=== PATIENT | female | born 1940 | race Caucasian/White ===

== ENCOUNTER 2016-10-12 10:05 | Emergency (ER) | payer OTHER ==
[~2016-10-12] VITALS: Ht 167.6 cm; Wt 85.0 kg
[~2016-10-12 10:05] MED LIST: ADVIL,NUPRIN,M200 MG PO; AMLODIPINE BESYL5 MG PO; ASPIRIN81 M2 PO; Aspirin E.C. PO; CALCIUM ASCORB500 MG PO; CALCIUM600 M1 PO; CARVEDILOL25 MG PO; Calcium Carbonate,Ca PO; Coreg PO; DOCUSATE SODIU100 MG PO; FISH OIL 1,0001 EAC7 PO; FUROSEMIDE80 MG PO; Fish Oil PO; HUMALOG MI100 UNIT/6 SC; HUMALOG MIX PO; LASIX40 MG PO; LASIX80 MG PO; LISINOPRIL40 MG PO; LOMOTIL TABLET1 EACH PO; LOPERAMIDE2 MG PO; Lasix PO; NITROSTAT0.4 MG SL; Nitrostat,NitroQuick SL; NovoLOG, HumaLOG SC; OMEPRAZOLE20 M2 PO; OMEPRAZOLE20 M3 PO; POTASSIUM CHLO20 ME1 PO; PRAVACHOL20 MG PO; PRAVASTATIN SOD20 MG PO; SERTRALINE HCL50 MG PO; ZANTAC150 MG PO; ZESTRIL,PRINIVI40 MG PO; ZITHROMAX250 MG PO; Zestril,Prinivil PO
[2016-10-12 11:16] LABS: HEMATOCRIT 43.4 % (36.0-46.0); MCH 25.8 PG (29.0-34.0); MCHC 31.1 G/DL (30.0-36.0); MCV 82.8 FL (83-99); PLATELET COUNT 214 K/uL (156-360); RBC DIS.WIDTH-CV 14.9 % (11.8-14.6); RBC DIS.WIDTH-SD 44.7 % (39-53); RED BLOOD COUNT 5.24 M/uL (3.80-5.20); WHITE BLOOD COUNT 5.5 K/uL (4.1-10.2)
[2016-10-12 11:23] LABS: CHLORIDE 107 mEq/L (99-109)
[2016-10-12 11:24] LABS: POTASSIUM 3.2 mEq/L (3.7-5.4); SODIUM 146 mEq/L (136-147)
[2016-10-12 11:25] LABS: GLUCOSE 231 mg/dL (70-99)
[2016-10-12 11:27] LABS: ANION GAP 10 MEQ/L (2-14)
[2016-10-12 11:29] LABS: GFR ESTIMATE (CALCULATED) > 59 mL/min/
[2016-10-12 11:30] LABS: UREA NITROGEN (BUN) 13 mg/dL (9-23)
[2016-10-12 12:01] LABS: TOTAL BILIRUBIN 0.7 mg/dL (0.0-1.0)
[2016-10-12 12:02] LABS: ALKALINE PHOSPHATASE 107 IU/L (3-129)
[2016-10-12 12:02] LABS: ADD MIUA? YES; BILIRUBIN NEGATIVE; BLOOD SMALL; COLOR YELLOW ((YELLOW)); GLUCOSE (STRIP) NEGATIVE; KETONES NEGATIVE; LEUKOCYTES MODERATE; NITRITE NEGATIVE; PROTEIN (STRIP) NEGATIVE; UROBILINOGEN 0.2 MG/DL (0.2-1.0)
[2016-10-12 12:05] LABS: DIRECT BILIRUBIN 0.2 mg/dL (0.0-0.3)
[2016-10-12 12:06] LABS: LIPASE 16 U/L (1.0-51.0)
[2016-10-12 12:13] LABS: BACTERIA 2+ /HPF; EPITHELIAL CELLS RARE /HPF; HYALINE CASTS 0-5 /LPF; MUCUS TRACE /LPF; RED BLOOD CELLS 0-5 /HPF (0-5); WHITE BLOOD CELLS 15-20 /HPF (0-5)
[2016-10-12] MEDS ORDERED: HUMALOG MI100 UNIT/5 SC ×2 (13:46)
[2016-10-12] MEDS ORDERED: CIPRO500 MG PO (14:29)
[2016-10-12] MEDS ORDERED: FLAGYL500 MG PO (14:29)
[2016-10-12 14:44] VITALS: BP 119/64
== END 2016-10-12 14:45 | disposition home or self-care (01) ==
LOC: EME 10:05
PROVIDERS: Physician Assistant
DX: K50.00 Crohn's disease of small intestine without complications (principal); K62.5 Hemorrhage of anus and rectum; E78.5 Hyperlipidemia, unspecified; E11.9 Type 2 diabetes mellitus without complications; I25.2 Old myocardial infarction; K21.9 Gastro-esophageal reflux disease without esophagitis; J45.909 Unspecified asthma, uncomplicated; Z79.4 Long term (current) use of insulin; Z79.82 Long term (current) use of aspirin
CPT/HCPCS: 74177; 80048; 80076; 81003; 83690; 85027; 86900; 86901; 99281; 99284